=== PATIENT | male | born 1975 | race African-American/Black ===

== ENCOUNTER 2019-07-09 16:45 | Emergency (ER) | payer BC ==
[~2019-07-09 16:45] MED LIST: EPINEPHrine 1 MG/10 ML SYR ONE; SODIUM BICARB 50 MEQ/50ML VIAL ONE
--- NOTE | 2019-07-09 17:34 | EDPHYS ---
Physician Documentation [facility] Name: Sheldon Dang Age: 44 yrs Sex: Male : 1975 Arrival Date: 07/09/2019 Time: 16:51 Bed 3 Private MD: ED Physician Lakeisha Kwon HPI: 07/08 17:08 This 44 yrs old Male presents to ER via Unassigned with complaints of cardiac arrest. ma2 17:08 The patient or guardian reports chest pain that is located primarily in the substernal ma2 area. Onset: suddenly, 1 hour(s) ago. Associated signs and symptoms: Pertinent negatives: cough, dizziness, lower extremity pain, lower extremity swelling, shortness of breath, vomiting. EMS care prior to arrival includes: supplemental oxygen, io , epinephrine and oxygination. Historical: - Home Meds: 18:52 Coreg 12.5 mg Oral tab 1 tab 2 times per day [Active]; sv - PMHx: 17:33 Hypertension; ss - Immunization history:: Adult Immunizations unknown. - Social history:: Smoking status: unknown. ROS: 17:08 Unable to obtain ROS due to cardiac arrest. ma2 17:13 All other systems are negative. ma2 17:13 All other systems are negative. 17:13 All other systems are negative. 17:14 All other systems are negative. ma2 17:32 Neck: Negative for injury, pain, and swelling. ma2 Exam: 17:08 Neck: Trachea midline, no thyromegaly or masses palpated, and no cervical ma2 lymphadenopathy. Supple, full range of motion without nuchal rigidity, or vertebral point tenderness. No Meningismus. Abdomen/GI: Soft, non-tender, with normal bowel sounds. No distension or tympany. No guarding or rebound. No evidence of tenderness throughout. Skin: Warm, dry with normal turgor. Normal color with no rashes, no lesions, and no evidence of cellulitis. MS/ Extremity: Pulses equal, no cyanosis. Neurovascular intact. Full, normal range of motion. 17:08 Cardiovascular: Rate: no pulse or cardiac activity, has PEA, Pulses: not palpable. 17:08 Respiratory: no spont. respiration . Vital Signs: 16:46 Pulse Ox 100% on ETT ambu; ss 17:10 Temp 100.7(R); ss Procedures: 17:08 CPR: See CPR flow sheet. Initial patient assessment: unresponsive, The presenting ma2 cardiac rhythm is PEA. Compressions: began prior to arrival. at 04:17. Meds given: Epinephrine Defibrillation: x2. Pacing: despite ED evaluation and treatment, the patient . CPR was stopped at 05:06. 17:08 Intubation: Ventilated with 100% NRB prior to procedure. Intubated orally using # 4 ma2 Payan blade with 7.0 mm ETT. Successful on second attempt. Ventilated with ventilator. Cricoid pressure applied during procedure. Placement verified by. MDM: 17:08 Patient medically screened. ma2 17:08 Differential diagnosis: acute myocardial infarction, coronary artery disease pulmonary ma2 embolus, thoracic aortic disection. RONALD Risk Score: not applicable. Data reviewed: vital signs, nurses notes, alf records. Counseling: I had a detailed discussion with the patient and/or guardian regarding:. Administered Medications: 16:42 Drug: EPINEPHrine 0.1mg/mL 1:10,000 1 mg {Note: administered by Tonja Hercules RN to L IO.} Route: IVP; Site: Other; 18:10 Follow up: Response: No adverse reaction sv 16:45 Drug: EPINEPHrine 0.1mg/mL 1:10,000 1 mg {Note: Administered by Tonja Hercules RN to L IO.} Route: IVP; Site: Other; 18:10 Follow up: Response: No adverse reaction sv 16:49 Drug: EPINEPHrine 0.1mg/mL 1:10,000 1 mg {Note: Administered by Tonja Hercules RN to L IO.} Route: IVP; Site: Other; 18:10 Follow up: Response: No adverse reaction sv 16:49 Drug: Sodium Bicarbonate 1 amp {Note: administered by Tonja Hercules RN to IO.} Route: IVP; Site: Other; 18:10 Follow up: Response: No adverse reaction sv 16:56 Drug: EPINEPHrine 0.1mg/mL 1:10,000 1 mg {Note: Administered by BARI Blackman to IO.} Route: IVP; Site: Other; 18:10 Follow up: Response: No adverse reaction sv 17:01 Drug: EPINEPHrine 0.1mg/mL 1:10,000 1 mg {Note: Administered by BARI Blackman to L IO.} Route: IVP; Site: Other; 18:10 Follow up: Response: No adverse reaction sv Disposition: 17:08 . ma2 Disposition: Patient pronounced on 07/09/19 17:33 by Lakeisha Kwon. Impression: Cardiac arrest. - Released to Landing Scaler. Signatures: Tonja Hercules RN RN sv Smirch, Shelby, RN RN ss Davies, Jonathon, RN RN jd3 Alzahri, Mohammad, MD MD ma2 Corrections: (The following items were deleted from the chart) 19:24 17:33 07/09/2019 17:33 Patient pronounced on 07/09/2019 at 17:33 by Lakeisha Kwon. pawel Impression: Cardiac arrest. Released to Landing Scaler. jayme
--- NOTE | 2019-07-09 17:34 | ER ---
Nurse's Notes [facility] Name: Sheldon Dang Age: 44 yrs Sex: Male : 1975 Arrival Date: 07/09/2019 Time: 16:51 Bed 3 Private MD: Diagnosis: Cardiac arrest Presentation: 07/08 16:36 Chief complaint: EMS states: Called out for patient that was found on ground in parking ss lot at work with agonal respirations. EMS reports that on site AED found shockable rhythm and shocked patient 3 times. EMS defibrillated patient x 1 en route to ED and administered Epi x 2. Kulwant tube inserted, BGL 172. Pt arrived to ED manual CPR in progress. Coronavirus screen: Unable to obtain until family arrives. Ebola Screen: Unable to complete the Ebola screening because:. Initial Sepsis Screen: Does the patient have a suspected source of infection? No. Patient's initial sepsis screen is negative. Risk Assessment: Do you want to hurt yourself or someone else? Unable to obtain. Care prior to arrival: CPR manually performed by EMS was defibrillated and is still in progress L tibia IO. Activity prior to arrival: unresponsive. 16:36 Method Of Arrival: EMS: [facility] ss 16:36 Compressions began prior to arrival. sv 16:36 Onset of symptoms was July 09, 2019. sv 16:36 Chief complaint: EMS states: CPR started at 1617 by EMS. sv 17:09 Acuity: WESLEY 1 dm5 17:10 Initial Sepsis Screen: Does the patient meet any 2 criteria? No. Patient's initial sv sepsis screen is negative. Historical: - Home Meds: 18:52 Coreg 12.5 mg Oral tab 1 tab 2 times per day [Active]; sv - PMHx: 17:33 Hypertension; ss - Immunization history:: Adult Immunizations unknown. - Social history:: Smoking status: unknown. Screenin:57 Abuse screen: unable to complete. Nutritional screening: unable to complete . sv Tuberculosis screening: unable to complete . Assessment: 16:36 Reassessment: Pt arrived to ED, manual compression in progress. Pt intubated with ss kingtube, EMS assisting ventilations. 16:36 CPR assessment: unresponsive, no respiratory effort, intubated, Ambu ventilation, sv pulses present w/ compressions. Cardiac rhythm is PEA. General: Appears distressed, Behavior is unresponsive. Neuro: Level of Consciousness is unresponsive, Oriented to none. Respiratory: Airway via oral intubation. GI: Abdomen is distended, obese. Derm: Skin is black. 16:40 Reassessment: Pulse check" PEA, no pulse. CPR resumed. ss 16:44 Reassessment: Pulse check, no pulse. CPR resumed. ss 16:47 Reassessment: pulse check, no pulse. CPR resumed, PEA. ss 16:52 Reassessment: Pulse check. No pulse. CPR resumed. PEA. ss 17:00 Reassessment: Pulse check, no pulse. CPR resumed. PEA. ss 17:03 Reassessment: pulse check. No pulse. PEA. CPR resumed. ss 17:05 Reassessment: Pulse check. No pulse. ULTRASOUND used by Dr. Kwon to check for ss cardiac activity. No cardiac activity noted. Time of called at 1706. 17:10 Reassessment: personal belongings removed from patient include work badHabet with dm5 several cards attached, large brown wallet with multiple cards and $125 in mars (counted by myself and witnessed by Gale Cunningham), and a smart phone in a blue case. All was secured in a security bag numbered [id number] and handed to officer Pennie in the security office. Belongings logged in security log by office pennie, witnessed by myself. 17:36 Reassessment: Patient's belongings handed over to . ss 17:51 Reassessment: [facility] notified of . Awaiting for glost tile shader husbandry technician to arrive to ED. ss 17:54 Reassessment: [facility] called and spoke with Luann Ellis. Ref # [id number]. sv 18:03 Reassessment: Deputy Schmitt at the bedside. sv 18:30 Reassessment: Santo Schmitt stated that pt will be ordered to go to the PR by Automatic Lump Making Machine Tender yared Hunter. Judge Hunter will not be coming up to the hospital. 18:37 Reassessment: Called [facility] back to inform pt will be going to the [facility]. Spoke with yared Lowe. 18:50 Reassessment: [facility] home arborist representative here. sv Vital Signs: 16:46 Pulse Ox 100% on ETT ambu; ss 17:10 Temp 100.7(R); ss ED Course: 16:36 Patient placed in an exam room, on a stretcher, on oxygen, on case monitor, on pulse sv oximetry, on backboard. 16:40 campus monitor on. Pulse ox on. NIBP on. ss 16:45 Assisted provider with intubation using 7.0 mm ETT via oral route. ET tube secured at ss 24cm at the teeth. Intubated by Lakeisha Kwon MD Placement verified by CO2 detector w/ + color change, auscultating bilateral breath sounds. 16:51 Patient arrived in ED. hb 17:08 Lakeisha Kwon MD is Attending Physician. ma2 17:09 Triage completed. dm5 17:33 Lakeisha Kwon MD is Pronouncing Provider. ma2 17:38 Missed attempt(s): 18 gauge in right antecubital area. mt 17:57 No provider procedures requiring assistance completed. intact. sv 17:57 Patient has correct armband on for positive identification. sv 18:01 Tonja Hercules RN is Primary Nurse. sv 18:06 14 Kazakh OG tube inserted by Tonja Hercules. Placement verified by auscultation and ss gastric contents returned. placed to low intermittent suction during code. 19:11 Primary Nurse role handed off by Tonja Hercules RN sv Administered Medications: 16:42 Drug: EPINEPHrine 0.1mg/mL 1:10,000 1 mg {Note: administered by Tonja Hercules RN to ss L IO.} Route: IVP; Site: Other; 18:10 Follow up: Response: No adverse reaction sv 16:45 Drug: EPINEPHrine 0.1mg/mL 1:10,000 1 mg {Note: Administered by Tonja Hercules RN to ss L IO.} Route: IVP; Site: Other; 18:10 Follow up: Response: No adverse reaction sv 16:49 Drug: EPINEPHrine 0.1mg/mL 1:10,000 1 mg {Note: Administered by Tonja Hercules RN to ss L IO.} Route: IVP; Site: Other; 18:10 Follow up: Response: No adverse reaction sv 16:49 Drug: Sodium Bicarbonate 1 amp {Note: administered by Tonja Hercules RN to L IO.} ss Route: IVP; Site: Other; 18:10 Follow up: Response: No adverse reaction sv 16:56 Drug: EPINEPHrine 0.1mg/mL 1:10,000 1 mg {Note: Administered by BARI Blackman to L IO.} ss Route: IVP; Site: Other; 18:10 Follow up: Response: No adverse reaction sv 17:01 Drug: EPINEPHrine 0.1mg/mL 1:10,000 1 mg {Note: Administered by BARI Blackman to L IO.} ss Route: IVP; Site: Other; 18:10 Follow up: Response: No adverse reaction sv Outcome: 19:24 Patient left the ED. jd3 Signatures: Margarita Wang RN RN dmTonja Martinez RN RN sv Smirch, Shelby, RN RN ss Baxter, Heather, RN RN hb Thompson, Daniel Guidry mt, RN RN jd3 Lakeisha Kwon MD MD ma2 Corrections: (The following items were deleted from the chart) 18:06 17:10 Temp 100.1F Rectal; sv ss
[2019-07-09 19:41] VITALS: O2SAT 100
[2019-07-09 19:42] VITALS: TEMP 100.7
== END 2019-07-09 19:24 ==
LOC: ER 16:45
PROC: 5A12012 Performance of Cardiac Output, Single, Manual (ICD-10-PCS; principal; 2019-07-09)
PROC: 0BH17EZ Insertion of Endotracheal Airway into Trachea, Via Natural or Artificial Opening (ICD-10-PCS; 2019-07-09)
PROC: 5A1935Z Respiratory Ventilation, Less than 24 Consecutive Hours (ICD-10-PCS; 2019-07-09)
DX: I46.9 Cardiac arrest, cause unspecified (principal); I10 Essential (primary) hypertension
CPT/HCPCS: 31500; 96375; 96374; 99291; 92950; 94002; J0171